=== PATIENT | male | born 1945 | race African-American/Black ===

== ENCOUNTER 2016-12-07 22:27 | Emergency (ER) | payer OTHER ==
[~2016-12-07] VITALS: Ht 167.6 cm; Wt 60.3 kg
[2016-12-07 22:47] LABS: URINE BILIRUBIN NEGATIVE (Negative); URINE BLOOD NEGATIVE (Negative); URINE COLOR YELLOW; URINE GLUCOSE-RANDOM* NEGATIVE (Negative); URINE KETONES NEGATIVE (Negative); URINE LEUKOCYTES-REFLEX NEGATIVE (Negative); URINE PROTEIN (DIPSTICK) NEGATIVE (Negative); URINE UROBILINOGEN 0.2 E.U./dl (0.2-1.0)
[2016-12-07 23:05] LABS: ABSOLUTE NEUTROPHILS 4.6 thou/uL (1.4-8.2); BASOPHILS 0.7 % (0.0-2.0); EOSINOPHILS 1.4 % (0.0-3.0); HEMATOCRIT 36.1 % (42.0-52.0); HEMOGLOBIN 12.8 gm/dL (14.0-18.0); LYMPHOCYTES 27.5 % (24.0-44.0); MCH 32.9 pg (26.0-34.0); MCHC 35.3 g/dL (28.0-37.0); MCV 93.1 fL (80.0-100.0); MONOCYTES 8.3 % (1.0-8.0); PLATELET COUNT 273 thou/uL (150-400); POLYS 62.1 % (36.0-66.0); RBC 3.88 mil/uL (4.50-6.00); RDW 12.8 % (10.5-14.5); WBC 7.3 thou/uL (4.0-11.0)
[2016-12-07 23:07] LABS: MANUAL DIFF NO
[2016-12-07 23:12] LABS: CALCIUM 8.9 mg/dL (8.5-10.1); CREATININE 0.9 mg/dL (0.7-1.3)
[2016-12-07 23:16] LABS: ALBUMIN 3.6 g/dL (3.4-5.0); TOTAL BILIRUBIN 0.4 mg/dL (<0.1-1.0); TOTAL PROTEIN 7.8 g/dL (6.4-8.2)
[2016-12-07] MEDS ORDERED: PYRIDIUM200 MG PO (23:43)
[2016-12-07] MEDS ORDERED: FLOMAX0.4 MG PO (23:43)
[2016-12-08 00:07] VITALS: BP 138/80
== END 2016-12-08 00:14 | disposition home or self-care (01) ==
LOC: ER 22:27
PROVIDERS: Emergency Medicine
DX: R30.0 Dysuria (principal); R39.11 Hesitancy of micturition

== ENCOUNTER 2020-01-13 21:09 | Emergency (ER) | payer OTHER ==
[~2020-01-13] VITALS: Ht 167.6 cm; Wt 59.4 kg
[~2020-01-13 21:09] MED LIST: FLOMAX0.4 MG PO; PYRIDIUM200 MG PO
[2020-01-13 22:04] LABS: ABSOLUTE NEUTROPHILS 4.6 thou/uL (1.4-8.2); BASOPHILS 0.4 % (0.0-2.0); EOSINOPHILS 2.6 % (0.0-3.0); HEMATOCRIT 38.8 % (42.0-52.0); HEMOGLOBIN 13.3 gm/dL (14.0-18.0); LYMPHOCYTES 33.7 % (24.0-44.0); MCH 32.5 pg (26.0-34.0); MCHC 34.3 g/dL (28.0-37.0); MCV 94.7 fL (80.0-100.0); MONOCYTES 6.4 % (1.0-8.0); PLATELET COUNT 233 thou/uL (150-400); POLYS 56.9 % (36.0-66.0); RDW 12.7 % (10.5-14.5)
[2020-01-13 22:12] LABS: ANION GAP 9 mmol/L (7-16); BUN 20 mg/dL (7-18); CHLORIDE 102 mmol/L (98-107); CO2 29 mmol/L (21-32); GLUCOSE 160 mg/dL (74-106); POTASSIUM 3.6 mmol/L (3.5-5.1); SODIUM 140 mmol/L (136-145)
[2020-01-13 22:22] LABS: MAGNESIUM 1.6 mg/dL (1.8-2.4); TROPONIN-I <0.06 ng/mL (<0.06)
[2020-01-14 00:54] VITALS: BP 156/85
--- NOTE | 2020-01-14 17:01 | EKG ---
[facility] [place] [address] ELECTROCARDIOGRAM REPORT Name: KARON LOGAN Room #: DEP [facility] [id number] Admission: 01/13/20 Attend Phys: Discharge: 01/14/20 Date of : 41 Report #: [id number] THIS REPORT FOR: cc: Tank Georges MD, Harry MD Lundgren,Lito Velazco MD [facility] ~ THIS REPORT FOR: //name// [facility] ED Test Date: 2020-01-13 Test Time: 22:09:21 Pat Name: KARON LOGAN Department: Room: Gender: [employer] System Operator: LAMAR : 1945 Requested By: Gerald Beyer Order Number: [id number] MD: Lito Bettencourt Measurements Intervals [place] Rate: 98 P: 69 AR: 158 QRS: -15 QRSD: 112 T: 66 QT: 375 QTc: 479 Interpretive Statements Sinus rhythm Borderline prolonged QT interval Baseline wander in lead(s) I Compared to ECG 06/15/2008 02:15:57 T wave abnormality is no longer present Electronically Signed On 01-14-2020 17:00:35 CDT by Lito Bettencourt [email or web address] <ELECTRONICALLY SIGNED> By: Lito Bettencourt MD, [facility] 01/14/200 08 08 Lito Bettencourt MD, [facility] /EPI
== END 2020-01-14 01:01 | disposition home or self-care (01) ==
LOC: ER 21:09
PROVIDERS: Emergency Medicine
DX: R06.02 Shortness of breath (principal); Z79.899 Other long term (current) drug therapy